=== PATIENT | female | born 1980 | race Asian ===

== ENCOUNTER 2016-12-15 01:33 | Emergency (ER) | payer OTHER ==
[~2016-12-15] VITALS: Ht 160 cm; Wt 46.5 kg
[2016-12-15 01:41] VITALS: Ht 160 cm; Wt 46.5 kg
--- NOTE | 2016-12-15 07:07 | RADRPT ---
PROCEDURE: Obstetrical ultrasound, limited. CLINICAL INDICATION: Pelvic pain. TECHNIQUE: Multiple sonographic images of the pelvis were obtained using transabdominal technique . Images were obtained with chapa scale and color Doppler. The images were reviewed on a PACS works tation. COMPARISON: No prior studies are available for comparison. FINDINGS: There is a single living intrauterine gestation with the fetus in a variable presentation. he art tones of 163 beats per minute are identified. The placenta is posterior in location, grade 0. There is normal amniotic fluid volume with the maximum vertical pocket measuring 3.3 cm. The cervix is closed. There is no evidence of placenta previa or abruption. Measurements were made in order to determine age. The results are as follows: BPD =2.56 cm HC =9.62 cm AC =7.53 cm FL =1.36 cm. Estimated gestational age of approximately 14 weeks and 2 days. The estimated date of delivery is 06/13/2017. The EFW = 89 +/- 13 grams. IMPRESSION: Single viable intrauterine gestation of approximately 14 weeks and 2 days, with an ultrasound DEBBIE of 06/13/2017. .Solomon Cortés MD, MD Date Time Electronically viewed and signed by .Solomon Cortés MD, MD on 12/15/2016 07:06 .T/
[2016-12-15 07:12] LABS: ADD SCAN DIFF NO
[2016-12-15 07:20] LABS: ADD UMIC YES; BASOPHILS % 0.2 % (0.0-2.0); EOSINOPHILS # 0.1 10^3/ul (0.0-0.5); EOSINOPHILS % 1.1 % (0.0-7.0); HEMATOCRIT 39.9 % (37.0-47.0); HEMOGLOBIN 13.1 g/dl (12.0-16.0); LYMPHOCYTES # 2.6 10^3/ul (0.8-2.9); LYMPHOCYTES % 21.7 % (15.0-51.0); MEAN CORPUSCULAR HEMOGLOBIN 27.9 pg (29.0-33.0); MEAN CORPUSCULAR HGB CONC 32.8 g/dl (32.0-37.0); MEAN CORPUSCULAR VOLUME 84.9 fl (82.0-101.0); MEAN PLATELET VOLUME 10.4 fl (7.4-10.4); MONOCYTE # 0.7 10^3/ul (0.3-0.9); MONOCYTES % 5.7 % (0.0-11.0); NEUTROPHIL # 8.6 10^3/ul (1.6-7.5); NEUTROPHILS % 70.6 % (39.0-77.0); PLATELET COUNT 235 10^3/UL (140-415); RED CELL DISTRIBUTION WIDTH 12.4 % (11.5-14.5); URINE BILIRUBIN (Dip) NEGATIVE (NEGATIVE); URINE BLOOD (Dip) TRACE (NEGATIVE); URINE COLOR LT. YELLOW (YELLOW); URINE GLUCOSE (Dip) NEGATIVE (NEGATIVE); URINE KETONES (Dip) TRACE (NEGATIVE); URINE LEUKOCYTE ESTERASE (Dip) NEGATIVE (NEGATIVE); URINE NITRITE (Dip) NEGATIVE (NEGATIVE); URINE TOTAL PROTEIN (Dip) NEGATIVE (NEGATIVE); URINE UROBILINOGEN (Dip) 0.2 E.U./dL (0.1-1.0); WHITE BLOOD COUNT 12.2 10^3/ul (4.8-10.8)
[2016-12-15 07:31] LABS: ALBUMIN 3.9 g/dl (3.3-4.9)
[2016-12-15 07:32] LABS: POTASSIUM 3.7 mmol/L (3.5-5.1)
[2016-12-15 07:34] LABS: ALBUMIN/GLOBULIN RATIO 1.3; BILIRUBIN,INDIRECT 0.3 mg/dl (0-1.1); BILIRUBIN,TOTAL 0.3 mg/dl (0.2-1.3); CREATININE 0.43 mg/dl (0.44-1.00); TOTAL PROTEIN 6.9 g/dl (6.1-8.1)
[2016-12-15 07:35] LABS: CALCIUM 9.2 mg/dl (8.4-10.2)
[2016-12-15 07:49] LABS: URINE RBCS NONE SEEN /HPF (0)
[2016-12-15 07:50] LABS: MUCUS,URINE OCCASIONAL
[2016-12-15 08:18] VITALS: BP 145/88; RESP 20; TEMP 98.8
--- NOTE | 2016-12-15 08:28 | ERD ---
ER Documentation Chief Complaint Date/Time DATE: 12/15/16 TIME: 08:25 Chief Complaint vomiting since last night. 14 weeks . also c/o fever/chills/abd viktor HPI Patient is a 36-year-old female who is complaining of mid abdominal pain with nausea and vomiting that began last night after eating a buffet. She also admits to fever and chills. Denies any vaginal bleeding. Denies any dysuria hematuria or increased urinary frequency. She is approximately 14 weeks . Denies any chest pain or shortness of breath. Denies any visual changes or blurry vision. ROS All systems reviewed and are negative except as per history of present illness. Allergies Allergies: Coded Allergies: No Known Drug Allergies (Verified Allergy, Unknown, 12/15/16) PMhx/Soc Medical and Surgical Hx: pt denies Surgical Hx Anesthesia Reaction: No Hx Neurological Disorder: No Hx Respiratory Disorders: No Hx Cardiac Disorders: Yes (HTN, "PRONE TO PREECLAMPSIA") Hx Psychiatric Problems: No Hx Miscellaneous Medical Probl: Yes (DM2) Hx Alcohol Use: No Hx Substance Use: No Hx Tobacco Use: No Smoking Status: Never smoker FmHx Family History: diabetes Physical Exam Vitals Vital Signs Date Time Temp Pulse Resp B/P Pulse Ox O2 Delivery O2 Flow Rate FiO2 12/15/16 08:18 98.8 20 145/88 100 12/15/16 01:41 98.8 95 20 176/90 99 Physical Exam General: well developed, well nourished, alert, nontoxic, no distress Head: normocephalic, atraumatic Neck: Supple, nontender, no lymphadenopathy, no midline tenderness Oropharynx: no tonsilar erythema or edema, uvula midline, no exudates, no kissing tonsils, no drooling Respiratory: Clear to auscaultation bilaterally, speaks in full sentences, no use of accesory muscles or labored breathing, no rales, ronchi, or wheezing Cardiovascular: RRR, No murmurs GI: soft, non tender, non distended, negative murphys sign, negative mcburneys point tenderness, no cva tenderness bilaterally, no rebound or guarding Back: no midline tenderness, no step offs or bony abnormalities, sensation to light touch in tact Result Diagram: 12/15/16 0700 3/26/17 0700 Results 24 hrs Laboratory Tests Test 12/15/16 07:00 White Blood Count 12.210^3/ul Red Blood Count 4.7010^6/ul Hemoglobin 13.1g/dl Hematocrit 39.9% Mean Corpuscular Volume 84.9fl Mean Corpuscular Hemoglobin 27.9pg Mean Corpuscular Hemoglobin Concent 32.8g/dl Red Cell Distribution Width 12.4% Platelet Count 37081^3/UL Mean Platelet Volume 10.4fl Neutrophils % 70.6% Lymphocytes % 21.7% Monocytes % 5.7% Eosinophils % 1.1% Basophils % 0.2% Nucleated Red Blood Cells % 0.0/100WBC Neutrophils # 8.610^3/ul Lymphocytes # 2.610^3/ul Monocytes # 0.710^3/ul Eosinophils # 0.110^3/ul Basophils # 0.010^3/ul Nucleated Red Blood Cells # 0.010^3/ul Urine Color LT. YELLOW Urine Clarity CLEAR Urine pH 6.0 Urine Specific Pioneer 1.015 Urine Ketones TRACE Urine Nitrite NEGATIVE Urine Bilirubin NEGATIVE Urine Urobilinogen 0.2 E.U./dL Urine Leukocyte Esterase NEGATIVE Urine Microscopic RBC NONE SEEN/HPF Urine Microscopic WBC 0-2/HPF Urine Epithelial Cells OCCASIONAL Urine Mucus OCCASIONAL Urine Hemoglobin TRACE Urine Glucose NEGATIVE% Urine Total Protein NEGATIVE Sodium Level 136mmol/L Potassium Level 3.7mmol/L Chloride Level 103mmol/L Carbon Dioxide Level 22mmol/L Anion Gap 15 Blood Urea Nitrogen 5mg/dl Creatinine 0.43mg/dl Glucose Level 80mg/dl Calcium Level 9.2mg/dl Total Bilirubin 0.3mg/dl Direct Bilirubin 0.00mg/dl Indirect Bilirubin 0.3mg/dl Aspartate Amino Transf (AST/SGOT) 20IU/L Alanine Aminotransferase (ALT/SGPT) 21IU/L Alkaline Phosphatase 66IU/L Total Protein 6.9g/dl Albumin 3.9g/dl Globulin 3.00g/dl Albumin/Globulin Ratio 1.30 Procedures/MDM Patient presents with abdominal pain during . Her abdominal examination is benign she has no tenderness throughout. I doubt appendicitis or gallbladder disease. White blood cell count mildly elevated 12.2 otherwise labs are unremarkable. Her OB ultrasound was also within normal limits. Her blood pressure however in triage was elevated 176/90. I reviewed this with my supervising physician Dr. Chavez who recommended I speak to OB. I spoke to the patient's OB office and spoke to Dr. Kaur who recommended the patient follow up with her OB doctor Dr. Garcia tomorrow. Her blood pressure was rechecked at discharge and it had improved to 145/88. I doubt preeclampsia however I spoke to the patient about preeclampsia and other blood pressure related issues and recommended she follow up tomorrow which he plans to.Recommended this patient follow up with her primary care doctor within 48 hours or return to the emergency room for any worsening of symptoms. However this time I do believe there is suitable for outpatient management. I answered all their questions and they agreed with the plan and were discharged home. Departure Diagnosis: Primary Impression: Elevated blood pressure reading Additional Impression: Abdominal pain affecting Condition: Stable Patient Instructions: Abdominal Pain, Early Additional Instructions: Call your primary care doctor TOMORROW for an appointment during the next 1-2 days.See the doctor sooner or return here if your condition worsens before your appointment time. BEKAH WISE PA-C Dec 15, 2016 08:28
== END 2016-12-15 08:31 | disposition home or self-care (01) ==
LOC: FTE 01:33
DX: O10.012 Pre-existing essential hypertension complicating pregnancy, second trimester (principal); R10.9 Unspecified abdominal pain; O24.812 Other pre-existing diabetes mellitus in pregnancy, second trimester; E11.9 Type 2 diabetes mellitus without complications; R10.2 Pelvic and perineal pain; Z3A.14 14 weeks gestation of pregnancy
CPT/HCPCS: 36415; 76801; 80053; 81001; 84702; 85025; 86900; 86901; Z7502; 81003

== ENCOUNTER 2017-01-29 23:05 | Outpatient (CLI) | payer OTHER ==
[~2017-01-29] VITALS: Ht 157.5 cm; Wt 48.0 kg
[2017-01-29 23:31] VITALS: Ht 157.5 cm; Wt 48.0 kg
--- NOTE | 2017-01-29 23:43 | QN ---
Documentation Comment OB Triage- Laborist Pt is a 36yo at 20+6 with hx of cHTN on no meds and low-lying placenta presents for evaluation s/p noticing blood on toilet paper after wiping. Pt tearfully recounting argument with boyfriend and stating she has "a lot of stress". States she was crying, went to the bathroom and then noticed blood on toilet paper. Denies recent intercourse. Denies dysuria, LOF or cramping. Reports normal FM and urinary frequency. VS 98.3 138/82 92 FHTs 150s Gen: tearful Abd: soft, nontender SSE: small amt of milky white discharge with pink tinge (no blood on patient's panties prior to SSE. no peripad in place). Pinpoint spot of bright red blood on anterior aspect of cervix without oozing or active bleeding (likely 2/2 trauma from speculum insertion) PROCEDURE: Obstetrical ultrasound greater than 14 weeks CLINICAL INDICATION: Vaginal bleeding TECHNIQUE: Real time sonographic imaging of the gravid uterus is performed transabdominally and multiple static chapa scale and Doppler images are submitted for review as are measurements. The images are reviewed on the PACS. COMPARISON: 12/15/2016 FINDINGS: There is a single living intrauterine gestation in cephalic presentation. The heart beat is estimated at 157 bpm. Placenta is posterior and grade 1. There is no evidence of placenta previa or abruption. RPTAT:HJJR IMPRESSION: 1. Single viable intrauterine gestation in cephalic presentation with the heart rate estimated at 157 bpm. 2. Posterior grade 1 placenta without abruption, placenta previa or finding to explain the patient's provided history. A/P: Vaginal spotting likely 2/2 ectropion -No e/o previa on U/S -Pt encouraged to hydrate given ketones on U/A -Pt desires d/c home with partner, expresses feeling safe with him and at home -F/up as scheduled with primary OB in clinic -PTL and PPROM precautions reviewed Questions answered to patient's satisfaction DANIEL DUQUE MD January 29, 2017 23:43
--- NOTE | 2017-01-30 00:12 | RADRPT ---
PROCEDURE: Obstetrical ultrasound greater than 14 weeks CLINICAL INDICATION: Vaginal bleeding TECHNIQUE: Real time sonographic imaging of the gravid uterus is performed transabdominally and mu ltiple static chapa scale and Doppler images are submitted for review as are measurements. The image s are reviewed on the PACS. COMPARISON: 12/15/2016 FINDINGS: There is a single living intrauterine gestation in cephalic presentation. The heart beat is estimated at 157 bpm. Placenta is posterior and grade 1. There is no evidence of placenta previa or abruption. RPTAT:HJJR IMPRESSION: 1. Single viable intrauterine gestation in cephalic presentation with the heart rate estimated at 15 7 bpm. 2. Posterior grade 1 placenta without abruption, placenta previa or finding to explain the patient's provided history. Physician Mahesh Date Time Electronically viewed and signed by Physician Mahesh on 01/30/2017 00:12 /
[2017-01-30 00:48] LABS: ADD UMIC YES; URINE BILIRUBIN (Dip) NEGATIVE (NEGATIVE); URINE BLOOD (Dip) 1+ (NEGATIVE); URINE COLOR LT. YELLOW (YELLOW); URINE GLUCOSE (Dip) NEGATIVE (NEGATIVE); URINE KETONES (Dip) 3+ (NEGATIVE); URINE LEUKOCYTE ESTERASE (Dip) 2+ (NEGATIVE); URINE NITRITE (Dip) NEGATIVE (NEGATIVE); URINE TOTAL PROTEIN (Dip) NEGATIVE (NEGATIVE); URINE UROBILINOGEN (Dip) 0.2 E.U./dL (0.1-1.0)
[2017-01-30 01:01] LABS: SQUAMOUS EPITHELIAL CELL,UR MANY
[2017-01-30 01:02] LABS: BACTERIA,URINE FEW; MUCUS,URINE FEW
--- NOTE | 2017-01-30 01:40 | TRIAGE ---
OB Triage Datetime Report Generated by CPN: 01/30/2017 01:40 Datetime: 01/30/2017 01:30 Stage of : OB Triage Datetime: 01/30/2017 01:00 Labor Evaluation Frequency: NONE Duration (sec)2399: NONE Datetime: 01/30/2017 00:00 Labor Evaluation Frequency: NONE Duration (sec)2399: NONE Datetime: 01/29/2017 23:53 Time of Arrival: 01/29/2017 23:10 EGA: 20.6 Arrived By: Wheelchair Arrived From: Home Chief Complaint: VAG BLEEDING Movement: Present Contractions: Denies/Absent Rupture of Membranes: Denies Vaginal Bleeding: Scant Vaginal Discharge: Denies Recent Sexual Intercouse: Denies Abdominal Trauma: Not Applicable Patient Complaints: Other Time Provider Notified: 01/29/2017 23:15 Provider Notified: DUNIA Initial Plan: FHT, EXAM, CALL OB Datetime: 01/29/2017 23:38 Temperature Route: Oral Datetime: 01/29/2017 23:15 Assessment Type: Triage Maternal Assessment Level of Consciousness: Fully Conscious Headache: Denies Blurred Vision: No Respiratory Effort: Unlabored; Regular Rhythm; Equal Expansion Breath Sounds, Left: Clear and Equal Breath Sounds, Right: Clear and Equal Nausea/Vomiting: Denies RUQ Epigastric Pain: Denies Lower Extremities Edema: None Degree: None Upper Extremities Edema: None Degree: None Facial Edema: None Fall Risk Assessment History of Falling: (0) No Secondary Diagnosis: (0) No Ambulatory Aid: (0) Bedrest/Nurse Assist IV Therapy: (0) No Gait: (0) Normal/Bedrest/Immobile Mental Status: (0) Oriented to Own Ability Fall Score: 0 Fall Risk Score Definition: No Risk: No action required Heart Rate FHR Baseline Rate: 150 Monitor Mode: Doppler Comments: HEART TONES TAKEN BY DOPPLER, TONES AT 150 AND AUDIBLE BY RN, DR. DUQUE AND PTGutierrez DUQUE ONLY ORDERED TONES X1 WITH CONTINUOUS TOCO Pain Assessment Pain Scale: 2 Pain Presence: Constant Pain Type: Ache Datetime: 01/29/2017 23:10 Stage of : OB Triage
== END 2017-01-30 01:30 | disposition home or self-care (01) ==
LOC: L-D 23:05 → OBT 23:05
PROVIDERS: ATTEND Obstetrics & Gynecology
DX: O20.9 Hemorrhage in early pregnancy, unspecified (principal); O10.012 Pre-existing essential hypertension complicating pregnancy, second trimester; Z3A.20 20 weeks gestation of pregnancy
CPT/HCPCS: 76815; 81001; 81003; 87220